=== PATIENT | male | born 1960 | race Caucasian/White ===

== ENCOUNTER 2017-03-13 19:38 | Emergency (ER) | payer MEDICAID ==
[2017-03-13] MEDS ORDERED: Metoprolol Tartrate 50 MG Tab PO ONE (20:02)
[2017-03-13 20:03] VITALS: BP 151/101
--- NOTE | 2017-03-13 21:03 | EDM.PDOC ---
ED HPI GENERAL MEDICAL PROBLEM - General Chief Complaint: Cardiovascular Problem Stated Complaint: RACING HEART Time Seen by Provider: 03/13/17 20:01 Source of Information: Reports: Patient, Police History Limitations: Reports: No Limitations - History of Present Illness INITIAL COMMENTS - FREE TEXT/NARRATIVE: This patient was picked up for DUI today. He noted that his heart rate was really fast. He said it is past a lot at the time especially after he drinks. He was seen in the ER about a year ago and was put on metoprolol. He hasn't taken any metoprolol for greater than one year. He said today he drank about a quart of whiskey. He said often he drinks every day and other times he'll go for several days without a drink. - Related Data Allergies Allergy/AdvReac Type Severity Reaction Status Date / Time No Known Allergies Allergy Verified 03/13/17 19:56 Home Meds: Home Meds NK [No Known Home Meds] 09/29/15 [History] Past Medical History - Past Health History Medical/Surgical History: Denies Medical/Surgical History Cardiovascular History: Reports: Other (See Below) Other Cardiovascular History: rheumatic fever Musculoskeletal History: Reports: Fracture Psychiatric History: Reports: Addiction - Infectious Disease History Infectious Disease History: Reports: Other (See Below) Other Infectious Disease History: unknown Social & Family History - Tobacco Use Smoking Status *Q: Never Smoker Second Hand Smoke Exposure: No - Alcohol Use Days Per Week of Alcohol Use: 7 Number of Drinks Per Day: 10 Total Drinks Per Week: 70 - Recreational Drug Use Recreational Drug Use: No ED ROS GENERAL - Review of Systems Review Of Systems: See Below Constitutional: Reports: No Symptoms HEENT: Reports: No Symptoms Respiratory: Reports: No Symptoms Cardiovascular: Reports: Other (Rapid heart rate). Denies: Chest Pain, Palpitations Endocrine: Reports: No Symptoms GI/Abdominal: Reports: No Symptoms : Reports: No Symptoms ED EXAM, GENERAL - Physical Exam Exam: See Below Exam Limited By: No Limitations General Appearance: Alert, WD/WN, No Apparent Distress Eye Exam: Bilateral Eye: Normal Inspection Throat/Mouth: Normal Inspection Respiratory/Chest: Lungs Clear, Normal Breath Sounds Cardiovascular: Normal Peripheral Pulses, Regular Rate, Rhythm, No Murmur GI/Abdominal: Non-Tender Extremities: Normal Inspection Neurological: Alert Psychiatric: Normal Affect Skin Exam: Warm, Dry Course - Vital Signs Last Recorded V/S: Last Vital Signs Temp 35.7 C 03/13/17 20:02 Pulse 124 H 03/13/17 20:07 Resp 14 03/13/17 20:02 BP 151/101 H 03/13/17 20:07 Pulse Ox 97 03/13/17 20:02 - Orders/Labs/Meds Orders: Active Orders 24 hr Category Date Time Status EKG Documentation Completion [RC] ASDIRECTED Care 03/13/17 20:03 Active EKG 12 Lead [EK] Urgent Ther 03/13/17 20:02 Ordered Labs: Laboratory Tests 03/13/17 03/13/17 03/13/17 Range/Units 20:02 20:02 20:02 WBC 4.5 (4.5-11.0) K/uL RBC 4.78 (4.30-5.90) M/uL Hgb 14.8 (12.0-15.0) g/dL Hct 45.3 (40.0-54.0) % MCV 95 (80-98) fL MCH 31 (27-31) pg MCHC 33 (32-36) % Plt Count 186 (150-400) K/uL Neut % (Auto) 64 (36-66) % Lymph % (Auto) 26 (24-44) % [place] % (Auto) 10 H (2-6) % Eos % (Auto) 0 L (2-4) % Baso % (Auto) 0 (0-1) % Sodium 143 (140-148) mmol/L Potassium 3.9 (3.6-5.2) mmol/L Chloride 106 (100-108) mmol/L Carbon Dioxide 25 (21-32) mmol/L Anion Gap 11.6 (5.0-14.0) mmol/L BUN 10 D (7-18) mg/dL Creatinine 0.8 (0.8-1.3) mg/dL Est Cr Clr Drug Dosing 114.51 mL/min Estimated GFR (MDRD) > 60 (>60) Glucose 119 H (74-106) mg/dL Calcium 8.0 L (8.5-10.1) mg/dL Total Bilirubin 0.1 L D (0.2-1.0) mg/dL AST 38 H (15-37) U/L ALT 105 H (12-78) U/L Alkaline Phosphatase 58 (46-116) U/L Troponin I < 0.017 (0.000-0.056) ng/mL Total Protein 8.5 H (6.4-8.2) g/dL Albumin 4.1 (3.4-5.0) g/dL Globulin 4.4 H (2.3-3.5) g/dL Albumin/Globulin Ratio 0.9 L (1.2-2.2) Ethyl Alcohol 250 mg/dL Meds: Medications Discontinued Medications Generic Name Dose Route Start Last Admin Trade Name Anahi PRN Reason Stop Dose Admin Metoprolol Tartrate 50 mg 03/13/17 20:02 03/13/17 20:07 Lopressor PO 03/13/17 20:03 50 mg ONETIME ONE Administration - Re-Assessments/Exams Free Text/Narrative Re-Assessment/Exam: 03/13/17 21:00 An EKG showed sinus tachycardia at 122 beats per minute normal QRS normal ST and T waves. Patient received metoprolol tartrate 50 mg by mouth. After about an hour his heart rate down to approximately 100. All labs were reviewed. Departure - Departure Time of Disposition: 21:01 Disposition: Home, Self-Care 01 Condition: fair Clinical Impression: Tachycardia, Alcohol intoxication Forms: ED Department Discharge Additional Instructions: Take the metoprolol 50 mg twice daily. This helps to regulate your heart rate and can also help in blood pressure control. The heart rate is usually rapid after alcohol intake and this may be the primary cause of the problem. The medication metoprolol to slow down his heart. If you notice that the heart rate was going down below 60 you should cut back on the dosage. You should limit yourself to no more than 2 drinks per day. Any more alcohol than this will eventually result in liver damage. Please don't drink and drive. - My Orders Last 24 Hours: My Active Orders 03/13/17 20:02 EKG 12 Lead [EK] Urgent 03/13/17 20:03 EKG Documentation Completion [RC] ASDIRECTED - Assessment/Plan Last 24 Hours: My Active Orders 03/13/17 20:02 EKG 12 Lead [EK] Urgent 03/13/17 20:03 EKG Documentation Completion [RC] ASDIRECTED
== END 2017-03-13 21:23 | disposition home or self-care (01) ==
LOC: JP.ED 19:38
DX: R00.0 Tachycardia, unspecified (principal); F10.929 Alcohol use, unspecified with intoxication, unspecified
CPT/HCPCS: 36415; 80053; 84484; 85025; 93005; 99285; A9270; G0480

== ENCOUNTER 2023-10-27 13:57 | Emergency (ER) | payer MEDICAID ==
[2023-10-27] MEDS: Adenosine 6 MG/2 ML SDV IVPUSH ONE ×2 (14:26→14:42)
[2023-10-27 14:42] LABS: BASOPHILS ABSOLUTE AUTO 0.03 K/uL (0.00-0.10); BASOPHILS PERCENT AUTO 0.3 % (0.1-1.3); EOSINOPHILS ABSOLUTE AUTO 0.07 K/uL (0.00-0.40); EOSINOPHILS PERCENT AUTO 0.6 % (0.0-5.4); HEMATOCRIT 45.9 % (38.4-49.7); HEMOGLOBIN 16.1 g/dL (12.9-16.9); IMMATURE GRAN ABSOLUTE AUTO 0.11 K/uL (0.00-0.23); LYMPHOCYTES ABSOLUTE AUTO 2.12 K/uL (0.8-3.3); LYMPHOCYTES PERCENT AUTO 18.9 % (11.4-47.7); MEAN CORPUSCULAR HGB CONC 35.1 g/dL (31.6-35.5); MEAN CORPUSCULAR VOLUME 94.1 fL (81.4-99.0); MONOCYTES ABSOLUTE AUTO 0.89 K/uL (0.20-0.90); MONOCYTES PERCENT AUTO 7.9 % (3.3-12.6); NEUTROPHILS ABSOLUTE AUTO 8.01 K/uL (1.0-7.6); NEUTROPHILS PERCENT AUTO 71.3 % (40.0-78.1); PLATELET COUNT,PLT 234 K/uL (130-375); RED BLOOD CELL COUNT 4.88 M/uL (4.14-5.76); WHITE BLOOD CELL COUNT,WBC 11.2 K/uL (3.2-11.0)
[2023-10-27] MEDS: Sodium Chloride 0.9% 1,000 ML IV ONE ×2 (14:43→15:55)
[2023-10-27] MEDS: Adenosine 6 MG/2 ML SDV ONE (14:48)
[2023-10-27] MEDS: Diltiazem 25 MG/5 ML SDV IVPUSH ONE ×2 (14:49→15:18)
[2023-10-27 14:55] LABS: CALCIUM 10.1 mg/dL (8.5-10.1); CREATININE 1.1 mg/dL (0.8-1.3); EST CRCL DRUG DOSING (CG) 77.4 mL/min; MAGNESIUM 1.6 mg/dL (1.8-2.4); TROPONIN I HIGH SENSITIVITY 35.3 pg/mL (<=60.3)
[2023-10-27] MEDS: Potassium Chloride 20 MEQ Tab.ER PO ONE (15:18)
[2023-10-27] MEDS: Magnesium Sulfate/Water 2 GM in Premix Bag 1 BAG IV ONE (15:18)
[2023-10-27] MEDS: NS + KCl 20mEq/L 1,000 ML IV SCH (15:19)
[2023-10-27] MEDS: Diltiazem 100 MG in Sodium Chloride 0.9% 100 ML IV SCH (15:25)
[2023-10-27] MEDS ORDERED: Propofol 200 MG/20 ML SDV ONE (16:28)
[2023-10-27 18:10] VITALS: BP 164/95; PULSE 104
[2023-10-27] MEDS: Metoprolol Tartrate 25 MG Tab PO ONE (18:10)
== END 2023-10-27 18:52 | disposition home or self-care (01) ==
LOC: JP.ED 13:57
DX: I48.92 Unspecified atrial flutter (principal); E83.42 Hypomagnesemia; E87.6 Hypokalemia
CPT/HCPCS: 36415; 80048; 80307; 83735; 84484; 85025; 93005; 96361; 96365; 96366; 96368; 96375; 96376; 99285; A9270; J0153; J2704; J3475; J3480; J3490; J7030